=== PATIENT | female | born 1960 | race Caucasian/White ===

== ENCOUNTER → 2017-06-30 | Outpatient (CLI) | payer OTHER ==
[~2017-06-30] MED LIST: Zofran Odt4 MG PO
== END ==
LOC: PLD 07:34 → LAB SHORT 07:34
DX: L98.9 Disorder of the skin and subcutaneous tissue, unspecified (principal)
CPT/HCPCS: 88305

== ENCOUNTER 2018-07-20 08:12 | Emergency (ER) | payer OTHER ==
[~2018-07-20] VITALS: Ht 172.7 cm; Wt 61.7 kg
[2018-07-20] MEDS ORDERED: TRAM50 PO (08:47)
[2018-07-20] MEDS ORDERED: CYCL10 PO (08:47)
[2018-07-20 09:36] LABS: BASOPHILS ABSOLUTE AUTO 0.03 K/mm3 (0.00-0.23); BASOPHILS PERCENT AUTO 1 % (0-2); EOSINOPHILS ABSOLUTE AUTO 0.04 K/mm3 (0.00-0.68); EOSINOPHILS PERCENT AUTO 1 % (0-6); Hematocrit 26.8 % (33.0-51.0); Hemoglobin 8.8 g/dL (11.5-16.0); IMMATURE GRAN ABSOLUTE AUTO 0.02 K/mm3 (0.00-0.10); IMMATURE GRAN PERCENT AUTO 0 % (0-1); LYMPHOCYTES ABSOLUTE AUTO 1.22 K/mm3 (0.84-5.20); LYMPHOCYTES PERCENT AUTO 27 % (21-46); MONOCYTES ABSOLUTE AUTO 0.29 K/mm3 (0.16-1.47); MONOCYTES PERCENT AUTO 7 % (4-13); Mean Corpuscular HGB 31.4 pg (26.0-34.0); Mean Corpuscular HGB Conc 32.8 g/dL (31.5-36.5); Mean Corpuscular Volume 96 fL (80-100); Mean Platelet Volume 10.2 fL (9.1-12.4); NEUTROPHILS ABSOLUTE AUTO 2.89 K/mm3 (1.96-9.15); NEUTROPHILS PERCENT AUTO 64 % (41-73); Platelet Count 168 K/mm3 (150-400); RDW Coefficient Variation 14.6 % (11.7-14.2); RDW Standard Deviation 50.7 fL (35.1-46.3); White Blood Cell Count 4.49 K/mm3 (4.00-11.30)
[2018-07-20 09:59] LABS: Alanine Aminotransfer (ALT/SGP 77 U/L (12-78); Albumin, Blood 2.6 g/dL (3.4-5.0); Albumin/Globulin Ratio 0.3 (0.8-1.8); Alk Phos 121 U/L (50-136); Anion Gap 5 mmol/L (6-16); Aspartate Aminotrans (AST/SGOT 38 U/L (12-37); Bilirubin, Total 0.4 mg/dL (0.1-1.0); Blood Urea Nitrogen 14 mg/dL (8-24); Bun/Creatinine Ratio 15.4 (12.0-20.0); CO2, Blood 26 mmol/L (21-32); Calcium, Blood 8.4 mg/dL (8.5-10.1); Chloride, Blood 104 mmol/L (98-108); Creatinine, Blood 0.91 mg/dL (0.40-1.00); Globulin, Blood 7.5 g/dL (2.2-4.0); Glomerular Filtration Rate >60 (60-); Glucose, Blood 117 mg/dL (70-99); Potassium, Blood 3.7 mmol/L (3.5-5.5); Sodium, Blood 135 mmol/L (136-145); Total Protein, Blood 10.1 g/dL (6.4-8.2)
[2018-07-20] MEDS ORDERED: Norco 10-325 T1 EACH PO (13:45)
== END 2018-07-20 14:41 | disposition home or self-care (01) ==
LOC: ER 08:12
PROVIDERS: Emergency Medicine
DX: S32.019A Unspecified fracture of first lumbar vertebra, initial encounter for closed fracture (principal); S32.029A Unspecified fracture of second lumbar vertebra, initial encounter for closed fracture; S32.039A Unspecified fracture of third lumbar vertebra, initial encounter for closed fracture; S32.049A Unspecified fracture of fourth lumbar vertebra, initial encounter for closed fracture; S32.059A Unspecified fracture of fifth lumbar vertebra, initial encounter for closed fracture; D64.9 Anemia, unspecified; X58.XXXA Exposure to other specified factors, initial encounter
CPT/HCPCS: 36415; 72158; 73502; 80053; 85025; 99284-25; A9577

== ENCOUNTER → 2018-10-01 | Outpatient (CLI) | payer OTHER ==
[~2018-10-01] MED LIST changes: +CYCL10 PO; +Norco 10-325 T1 EACH PO; +TRAM50 PO
== END | disposition home or self-care (01) ==
LOC: LAB EV 12:26 → LAB SHORT 12:26
DX: M25.572 Pain in left ankle and joints of left foot (principal)
CPT/HCPCS: 84550

== ENCOUNTER → 2019-02-23 | Outpatient (CLI) | payer OTHER ==
[2019-02-23 12:01] LABS: Source, Urine Clean Catch
[2019-02-23 12:55] LABS: Bilirubin, Urine Neg (Neg); Blood, Urine 1+ (Neg); Glucose Qualitative, Urine Neg (Neg); Ketones, Urine Neg (Neg); Leukocyte Esterase, Urine Neg (Neg); Nitrite, Urine Neg (Neg); Protein, Urine Neg (Neg); Specific Gravity, Urine 1.005 (1.003-1.022); Urobilinogen, Urine NORM (Normal)
[2019-02-23 13:06] LABS: Appearance, Urine Clear (Clear); Color, Urine Yellow (P-Yellow)
[2019-02-23 13:07] LABS: Bacteria Rare /hpf; Red Blood Cells, Urine 0-2 /hpf (0-2); Squamous Epithelial Cells Not Seen /hpf (Few); White Blood Cells, Urine Not Seen /hpf (0-5)
== END | disposition home or self-care (01) ==
LOC: LAB 12:00 → LAB SHORT 12:00
PROVIDERS: Registered Nurse Oncology
DX: N39.0 Urinary tract infection, site not specified (principal)
CPT/HCPCS: 81001; 87086

== ENCOUNTER 2020-08-23 04:37 | Day surgery (SDC) | payer OTHER ==
[2020-08-20 09:03] LABS: BASOPHILS PERCENT AUTO 0 % (0-2); EOSINOPHILS PERCENT AUTO 5 % (0-6); Hematocrit 19.1 % (33.0-51.0); Mean Corpuscular HGB 34.5 pg (26.0-34.0); Mean Corpuscular HGB Conc 31.4 g/dL (31.5-36.5); Mean Corpuscular Volume 110 fL (80-100); Mean Platelet Volume 12.2 fL (9.1-12.4); Platelet Count 59 K/mm3 (150-400); RDW Coefficient Variation 14.9 % (11.7-14.2); RDW Standard Deviation 60.3 fL (35.1-46.3); Red Blood Cell Count 1.74 M/mm3 (3.80-5.20); White Blood Cell Count 2.09 K/mm3 (4.00-11.30)
[2020-08-20 09:05] LABS: IMMATURE GRAN ABSOLUTE AUTO 0.03 K/mm3 (0.00-0.10); IMMATURE GRAN PERCENT AUTO 1 % (0-1); LYMPHOCYTES ABSOLUTE AUTO 0.21 K/mm3 (0.84-5.20); LYMPHOCYTES PERCENT AUTO 10 % (21-46); MONOCYTES ABSOLUTE AUTO 0.12 K/mm3 (0.16-1.47); MONOCYTES PERCENT AUTO 6 % (4-13); NEUTROPHILS ABSOLUTE AUTO 1.63 K/mm3 (1.96-9.15); NEUTROPHILS PERCENT AUTO 78 % (41-73)
[2020-08-20 09:15] LABS: Alanine Aminotransfer (ALT/SGP 26 U/L (12-78); Albumin, Blood 2.5 g/dL (3.4-5.0); Albumin/Globulin Ratio 0.3 (0.8-1.8); Alk Phos 69 U/L (50-136); Anion Gap 6 mmol/L (6-16); Aspartate Aminotrans (AST/SGOT 10 U/L (12-37); Bilirubin, Total 0.3 mg/dL (0.1-1.0); Blood Urea Nitrogen 11 mg/dL (8-24); CO2, Blood 23 mmol/L (21-32); Calcium, Blood 7.8 mg/dL (8.5-10.1); Chloride, Blood 104 mmol/L (98-108); Creatinine, Blood 0.85 mg/dL (0.40-1.00); Globulin, Blood 7.6 g/dL (2.2-4.0); Glomerular Filtration Rate >60 (60-); Glucose, Blood 108 mg/dL (70-99); Potassium, Blood 3.7 mmol/L (3.5-5.5); Sodium, Blood 133 mmol/L (136-145); Total Protein, Blood 10.1 g/dL (6.4-8.2)
[2020-08-21 08:26] LABS: Performing Lab BLOODWORKS; Test Name ABID
[2020-08-22 11:41] LABS: Result SEE REPORT
[~2020-08-23 04:37] MED LIST changes: +DEXAMETHASONE IV; +FENTANYL; +OXYC10ER PO; +[UNRECOGNIZED DRUG - OTHER] IV
== END 2020-08-23 11:25 | disposition home or self-care (01) ==
LOC: ATC 04:37 → LAB SO 09-18 09:10 → EDSTATUS 09-18 09:10 → ATC 09-18 09:10
PROVIDERS: Internal Medicine Hematology & Oncology
DX: C90.00 Multiple myeloma not having achieved remission (principal); D63.0 Anemia in neoplastic disease
CPT/HCPCS: 36415; 36430; 80053; 85025; 86850; 86870; 86900; 86901; 86902; 86906; 86922; 86971; J7050; P9016

== ENCOUNTER → 2020-09-01 | Outpatient (CLI) | payer OTHER ==
[~2020-09-01] MED LIST changes: +ACET325 PO; +ACYC800 PO; +CEFU500T30 PO; +FENTANYL1 EA10 TOP; +FLUC200 PO; +FURO40 PO; +GUAI200 PO; +LEVFLO500 PO; +ONDA4 PO; +ONDA4ODT MM; +SENNA LAXATIVE8.6 MG PO; +TOBRAMYCIN5 ML RIGHTEYE
[2020-09-01 11:21] LABS: Hematocrit 25.7 % (33.0-51.0); Hemoglobin 8.3 g/dL (11.5-16.0); Mean Corpuscular HGB 33.2 pg (26.0-34.0); Mean Corpuscular HGB Conc 32.3 g/dL (31.5-36.5); Mean Corpuscular Volume 103 fL (80-100); RDW Coefficient Variation 16.3 % (11.7-14.2)
[2020-09-01 11:37] LABS: BAND PERCENT MAN 7 % (0-8); BASOPHILS PERCENT MAN 3 % (0-2); EOSINOPHILS PERCENT MAN 0 % (0-6); LYMPHOCYTES PERCENT MAN 36 % (21-46); METAMYELOCYTE PERCENT MAN 1 % (0-0); MONOCYTES PERCENT MAN 10 % (4-13); MYELOCYTE PERCENT MAN 2 % (0-0); SEG NEUTROPHILS PERCENT MAN 41 % (41-73); TOTAL CELLS COUNTED 100
[2020-09-01 11:39] LABS: Mean Platelet Volume 10.7 fL (9.1-12.4); Platelet Count 73 K/mm3 (150-400)
== END | disposition home or self-care (01) ==
LOC: LAB SHORT 11:12 → LAB 11:12
PROVIDERS: General Practice
DX: H00.019 Hordeolum externum unspecified eye, unspecified eyelid (principal)
CPT/HCPCS: 85025

== ENCOUNTER 2020-09-09 00:27 | Day surgery (SDC) | payer OTHER ==
[~2020-09-09 00:27] MED LIST changes: -ACET325 PO; -ACYC800 PO; -CEFU500T30 PO; -FENTANYL1 EA10 TOP; -FLUC200 PO; -FURO40 PO; -GUAI200 PO; -LEVFLO500 PO; -ONDA4 PO; -ONDA4ODT MM; -SENNA LAXATIVE8.6 MG PO; -TOBRAMYCIN5 ML RIGHTEYE
[2020-09-09] MEDS ORDERED: TOBRAMYCIN5 ML RIGHTEYE (10:52)
[2020-09-09] MEDS ORDERED: CEFU500T30 PO (10:53)
[2020-09-09] MEDS ORDERED: FENTANYL1 EA10 TOP (10:53)
== END 2020-09-09 10:20 | disposition home or self-care (01) ==
LOC: ATC 00:27
DX: D64.9 Anemia, unspecified (principal); C90.00 Multiple myeloma not having achieved remission; Z94.84 Stem cells transplant status; E78.5 Hyperlipidemia, unspecified; Z87.311 Personal history of (healed) other pathological fracture
CPT/HCPCS: 36569; C1751

== ENCOUNTER 2020-09-18 08:16 | Emergency (ER) | payer OTHER ==
[~2020-09-18] VITALS: Ht 167.6 cm; Wt 62.1 kg
[~2020-09-18 08:16] MED LIST changes: +CEFU500T30 PO; +FENTANYL1 EA10 TOP; +TOBRAMYCIN5 ML RIGHTEYE
[2020-09-18] MEDS ORDERED: ACET325 PO (09:00)
[2020-09-18] MEDS ORDERED: ACYC800 PO (09:01)
[2020-09-18] MEDS ORDERED: FLUC200 PO (09:01)
[2020-09-18] MEDS ORDERED: FURO40 PO (09:02)
[2020-09-18] MEDS ORDERED: GUAI200 PO (09:02)
[2020-09-18] MEDS ORDERED: LEVFLO500 PO (09:02)
[2020-09-18] MEDS ORDERED: ONDA4 PO (09:03)
[2020-09-18] MEDS ORDERED: SENNA LAXATIVE8.6 MG PO (09:03)
[2020-09-18 10:00] LABS: Hematocrit 28.1 % (33.0-51.0); Hemoglobin 9.3 g/dL (11.5-16.0); Mean Corpuscular HGB 31.8 pg (26.0-34.0); Mean Corpuscular HGB Conc 33.1 g/dL (31.5-36.5); Mean Corpuscular Volume 96 fL (80-100); Mean Platelet Volume 12.2 fL (9.1-12.4); RDW Coefficient Variation 16.2 % (11.7-14.2); Red Blood Cell Count 2.92 M/mm3 (3.80-5.20)
[2020-09-18 10:25] LABS: Platelet Count 20 K/mm3 (150-400)
[2020-09-18 10:28] LABS: Anion Gap 4 mmol/L (6-16); Blood Urea Nitrogen 17 mg/dL (8-24); Bun/Creatinine Ratio 32.6 (12.0-20.0); CO2, Blood 24 mmol/L (21-32); Chloride, Blood 107 mmol/L (98-108); Creatinine, Blood 0.52 mg/dL (0.40-1.00); Glomerular Filtration Rate >60 (60-); Glucose, Blood 86 mg/dL (70-99); Potassium, Blood 3.5 mmol/L (3.5-5.5); Sodium, Blood 135 mmol/L (136-145)
[2020-09-18 10:52] LABS: BASOPHILS PERCENT MAN 0 % (0-2); EOSINOPHILS ABSOLUTE MAN 0.01 K/mm3 (0.00-0.68); EOSINOPHILS PERCENT MAN 1 % (0-6); LYMPHOCYTES % ATYPICAL MANUAL 1 % (0-0); LYMPHOCYTES ABSOLUTE MAN 0.07 K/mm3 (0.84-5.20); LYMPHOCYTES PERCENT MAN 6 % (21-46); MONOCYTES PERCENT MAN 0 % (4-13); NEUTROPHILS ABSOLUTE MAN 0.92 K/mm3 (1.96-9.15); SEG NEUTROPHILS PERCENT MAN 92 % (41-73); TOTAL CELLS COUNTED 100
[2020-09-18] MEDS ORDERED: ONDA4ODT MM (13:22)
== END 2020-09-18 13:40 | disposition home or self-care (01) ==
LOC: ER 08:16
PROVIDERS: Family Medicine
DX: R11.10 Vomiting, unspecified (principal); T45.1X5A Adverse effect of antineoplastic and immunosuppressive drugs, initial encounter; C90.00 Multiple myeloma not having achieved remission
CPT/HCPCS: 80048; 85025; 96374; 99283-25; J2405; J7030

== ENCOUNTER 2020-09-19 01:19 | Day surgery (SDC) | payer OTHER ==
[~2020-09-19 01:19] MED LIST changes: +ACET325 PO; +ACYC800 PO; +FLUC200 PO; +FURO40 PO; +GUAI200 PO; +LEVFLO500 PO; +ONDA4 PO; +ONDA4ODT MM; +SENNA LAXATIVE8.6 MG PO
== END 2020-09-19 15:27 | disposition home or self-care (01) ==
LOC: LAB 01:19 → ATC 01:19
DX: C90.00 Multiple myeloma not having achieved remission (principal); D69.59 Other secondary thrombocytopenia
CPT/HCPCS: 36430; 86900; 86901; J7050; P9035

== ENCOUNTER 2020-09-24 00:38 | Day surgery (SDC) | payer OTHER ==
[2020-09-23 09:18] LABS: Hematocrit 26.4 % (33.0-51.0); Hemoglobin 8.7 g/dL (11.5-16.0); Mean Corpuscular HGB 31.2 pg (26.0-34.0); Mean Corpuscular Volume 95 fL (80-100); RDW Coefficient Variation 14.5 % (11.7-14.2); RDW Standard Deviation 50.7 fL (35.1-46.3); Red Blood Cell Count 2.79 M/mm3 (3.80-5.20)
[2020-09-23 09:30] LABS: Alanine Aminotransfer (ALT/SGP 102 U/L (12-78); Albumin, Blood 2.2 g/dL (3.4-5.0); Albumin/Globulin Ratio 0.3 (0.8-1.8); Alk Phos 62 U/L (50-136); Anion Gap 2 mmol/L (6-16); Aspartate Aminotrans (AST/SGOT 14 U/L (12-37); Bilirubin, Total 0.4 mg/dL (0.1-1.0); Blood Urea Nitrogen 10 mg/dL (8-24); Bun/Creatinine Ratio 14.7 (12.0-20.0); CO2, Blood 29 mmol/L (21-32); Calcium, Blood 7.8 mg/dL (8.5-10.1); Chloride, Blood 101 mmol/L (98-108); Creatinine, Blood 0.68 mg/dL (0.40-1.00); Globulin, Blood 7.3 g/dL (2.2-4.0); Glomerular Filtration Rate >60 (60-); Glucose, Blood 119 mg/dL (70-99); Potassium, Blood 3.5 mmol/L (3.5-5.5); Sodium, Blood 132 mmol/L (136-145); Total Protein, Blood 9.5 g/dL (6.4-8.2)
[2020-09-23 09:33] LABS: White Blood Cell Count 0.06 K/mm3 (4.00-11.30)
[2020-09-23 09:34] LABS: Platelet Count 11 K/mm3 (150-400)
[2020-09-23 09:46] LABS: BASOPHILS PERCENT MAN 0 % (0-2); EOSINOPHILS PERCENT MAN 0 % (0-6); LYMPHOCYTES ABSOLUTE MAN 0.05 K/mm3 (0.84-5.20)
[2020-09-23 09:54] LABS: LYMPHOCYTES PERCENT MAN 94 % (21-46); MONOCYTES PERCENT MAN 0 % (4-13); SEG NEUTROPHILS PERCENT MAN 6 % (41-73); TOTAL CELLS COUNTED 16
== END 2020-09-24 09:55 | disposition home or self-care (01) ==
LOC: ATC 00:38 → EDSTATUS 08:00 → ATC 09:55
PROVIDERS: Internal Medicine Hematology & Oncology
DX: C90.00 Multiple myeloma not having achieved remission (principal); C79.51 Secondary malignant neoplasm of bone; E78.5 Hyperlipidemia, unspecified; D70.1 Agranulocytosis secondary to cancer chemotherapy; D63.0 Anemia in neoplastic disease; Z92.21 Personal history of antineoplastic chemotherapy
CPT/HCPCS: 36415; 80053; 85025; 86900; 86901; J7050; P9053

== ENCOUNTER 2020-09-26 00:51 | Day surgery (SDC) | payer OTHER | END 2020-09-26 14:15 | disposition home or self-care (01) | LOC: ATC 00:51 | DX: C90.00 Multiple myeloma not having achieved remission (principal); C79.51 Secondary malignant neoplasm of bone; D63.0 Anemia in neoplastic disease; G89.3 Neoplasm related pain (acute) (chronic) | CPT/HCPCS: 99211 ==

== ENCOUNTER 2020-09-27 08:55 | Day surgery (SDC) | payer OTHER ==
[2020-09-26 09:37] LABS: Hematocrit 24.7 % (33.0-51.0); Hemoglobin 8.1 g/dL (11.5-16.0); Mean Corpuscular HGB 31.6 pg (26.0-34.0); Mean Corpuscular HGB Conc 32.8 g/dL (31.5-36.5); Mean Corpuscular Volume 97 fL (80-100); RDW Coefficient Variation 14.4 % (11.7-14.2); Red Blood Cell Count 2.56 M/mm3 (3.80-5.20)
[2020-09-26 09:46] LABS: White Blood Cell Count 0.03 K/mm3 (4.00-11.30)
[2020-09-26 09:47] LABS: Platelet Count 18 K/mm3 (150-400)
[2020-09-26 09:52] LABS: Alanine Aminotransfer (ALT/SGP 61 U/L (12-78); Albumin, Blood 2.4 g/dL (3.4-5.0); Albumin/Globulin Ratio 0.3 (0.8-1.8); Alk Phos 76 U/L (50-136); Anion Gap 4 mmol/L (6-16); Aspartate Aminotrans (AST/SGOT 12 U/L (12-37); Bilirubin, Total 0.4 mg/dL (0.1-1.0); Blood Urea Nitrogen 11 mg/dL (8-24); Bun/Creatinine Ratio 18.4 (12.0-20.0); CO2, Blood 26 mmol/L (21-32); Calcium, Blood 7.9 mg/dL (8.5-10.1); Chloride, Blood 104 mmol/L (98-108); Globulin, Blood 7.1 g/dL (2.2-4.0); Glomerular Filtration Rate >60 (60-); Glucose, Blood 100 mg/dL (70-99); Potassium, Blood 3.7 mmol/L (3.5-5.5); Sodium, Blood 134 mmol/L (136-145); Total Protein, Blood 9.5 g/dL (6.4-8.2)
[2020-09-26 10:22] LABS: BASOPHILS PERCENT MAN 0 % (0-2); EOSINOPHILS PERCENT MAN 0 % (0-6); LYMPHOCYTES % ATYPICAL MANUAL 14 % (0-0); LYMPHOCYTES ABSOLUTE MAN 0.02 K/mm3 (0.84-5.20); LYMPHOCYTES PERCENT MAN 71 % (21-46); MONOCYTES PERCENT MAN 14 % (4-13)
[2020-09-26 10:25] LABS: SEG NEUTROPHILS PERCENT MAN 0 % (41-73)
[2020-09-26 10:27] LABS: TOTAL CELLS COUNTED 14
== END 2020-09-27 22:42 | disposition home or self-care (01) ==
LOC: ATC 08:55 → EDSTATUS 08:58 → ATC 22:42
PROVIDERS: Internal Medicine Hematology & Oncology
DX: C90.00 Multiple myeloma not having achieved remission (principal); D69.59 Other secondary thrombocytopenia; C79.51 Secondary malignant neoplasm of bone; D63.0 Anemia in neoplastic disease; G89.3 Neoplasm related pain (acute) (chronic)
CPT/HCPCS: 36415; 80053; 85025; 86900; 86901; J7050; P9037

== ENCOUNTER 2020-10-03 00:57 | Day surgery (SDC) | payer OTHER ==
[2020-10-03 09:30] LABS: Hematocrit 20.5 % (33.0-51.0); Hemoglobin 6.8 g/dL (11.5-16.0); Mean Corpuscular HGB 31.1 pg (26.0-34.0); Mean Corpuscular HGB Conc 33.2 g/dL (31.5-36.5); Mean Corpuscular Volume 94 fL (80-100); RDW Coefficient Variation 14.1 % (11.7-14.2); RDW Standard Deviation 47.7 fL (35.1-46.3); Red Blood Cell Count 2.19 M/mm3 (3.80-5.20)
[2020-10-03 09:43] LABS: Alanine Aminotransfer (ALT/SGP 38 U/L (12-78); Albumin, Blood 2.4 g/dL (3.4-5.0); Albumin/Globulin Ratio 0.3 (0.8-1.8); Alk Phos 94 U/L (50-136); Anion Gap 6 mmol/L (6-16); Aspartate Aminotrans (AST/SGOT 14 U/L (12-37); Bilirubin, Total 0.4 mg/dL (0.1-1.0); Blood Urea Nitrogen 13 mg/dL (8-24); Bun/Creatinine Ratio 18.9 (12.0-20.0); CO2, Blood 24 mmol/L (21-32); Calcium, Blood 8.5 mg/dL (8.5-10.1); Chloride, Blood 105 mmol/L (98-108); Creatinine, Blood 0.69 mg/dL (0.40-1.00); Globulin, Blood 7.2 g/dL (2.2-4.0); Glomerular Filtration Rate >60 (60-); Glucose, Blood 99 mg/dL (70-99); Potassium, Blood 4.2 mmol/L (3.5-5.5); Sodium, Blood 135 mmol/L (136-145); Total Protein, Blood 9.6 g/dL (6.4-8.2)
[2020-10-03 10:04] LABS: BASOPHILS PERCENT AUTO 0 % (0-2); EOSINOPHILS PERCENT AUTO 0 % (0-6); IMMATURE GRAN ABSOLUTE AUTO 0.04 K/mm3 (0.00-0.10); IMMATURE GRAN PERCENT AUTO 15 % (0-1); LYMPHOCYTES ABSOLUTE AUTO 0.05 K/mm3 (0.84-5.20); LYMPHOCYTES PERCENT AUTO 19 % (21-46); MONOCYTES ABSOLUTE AUTO 0.03 K/mm3 (0.16-1.47); MONOCYTES PERCENT AUTO 12 % (4-13); NEUTROPHILS ABSOLUTE AUTO 0.14 K/mm3 (1.96-9.15); NEUTROPHILS PERCENT AUTO 54 % (41-73)
[2020-10-03 10:05] LABS: White Blood Cell Count 0.26 K/mm3 (4.00-11.30)
[2020-10-03 10:06] LABS: Platelet Count 6 K/mm3 (150-400)
[2020-10-03 10:35] LABS: BAND PERCENT MAN 12 % (0-8); BASOPHILS PERCENT MAN 0 % (0-2); EOSINOPHILS PERCENT MAN 0 % (0-6); LYMPHOCYTES ABSOLUTE MAN 0.09 K/mm3 (0.84-5.20); LYMPHOCYTES PERCENT MAN 36 % (21-46); MONOCYTES ABSOLUTE MAN 0.01 K/mm3 (0.16-1.47); MONOCYTES PERCENT MAN 4 % (4-13); NEUTROPHILS ABSOLUTE MAN 0.15 K/mm3 (1.96-9.15); SEG NEUTROPHILS PERCENT MAN 48 % (41-73); TOTAL CELLS COUNTED 25
== END 2020-10-03 18:13 | disposition home or self-care (01) ==
LOC: LAB 00:57 → ATC 00:57
PROVIDERS: Internal Medicine Hematology & Oncology
DX: C90.00 Multiple myeloma not having achieved remission (principal); D63.0 Anemia in neoplastic disease; D69.59 Other secondary thrombocytopenia
CPT/HCPCS: 36415; 36430; 36591; 80053; 85025; 86850; 86900; 86901; 86923; J7050; P9016; P9035

== ENCOUNTER 2020-10-10 09:08 | Day surgery (SDC) | payer OTHER ==
[2020-10-10 09:55] LABS: Hematocrit 24.3 % (33.0-51.0); Hemoglobin 8.2 g/dL (11.5-16.0); Mean Corpuscular HGB 30.4 pg (26.0-34.0); Mean Corpuscular HGB Conc 33.7 g/dL (31.5-36.5); Mean Corpuscular Volume 90 fL (80-100); Mean Platelet Volume 12.7 fL (9.1-12.4); NRBC ABSOLUTE 0.02 K/mm3 (0.00-0.02); NRBC Auto 0.8 /100 WBC (0.0-0.2); RDW Coefficient Variation 13.9 % (11.7-14.2); RDW Standard Deviation 45.7 fL (35.1-46.3); White Blood Cell Count 2.47 K/mm3 (4.00-11.30)
[2020-10-10 10:01] LABS: Alanine Aminotransfer (ALT/SGP 30 U/L (12-78); Albumin, Blood 2.6 g/dL (3.4-5.0); Albumin/Globulin Ratio 0.3 (0.8-1.8); Alk Phos 80 U/L (50-136); Anion Gap 5 mmol/L (6-16); Aspartate Aminotrans (AST/SGOT 16 U/L (12-37); Bilirubin, Total 0.3 mg/dL (0.1-1.0); Blood Urea Nitrogen 10 mg/dL (8-24); Bun/Creatinine Ratio 13.6 (12.0-20.0); CO2, Blood 24 mmol/L (21-32); Calcium, Blood 8.5 mg/dL (8.5-10.1); Chloride, Blood 107 mmol/L (98-108); Creatinine, Blood 0.73 mg/dL (0.40-1.00); Globulin, Blood 7.6 g/dL (2.2-4.0); Glomerular Filtration Rate >60 (60-); Glucose, Blood 104 mg/dL (70-99); Potassium, Blood 3.9 mmol/L (3.5-5.5); Sodium, Blood 136 mmol/L (136-145); Total Protein, Blood 10.2 g/dL (6.4-8.2)
[2020-10-10 10:08] LABS: Platelet Count 27 K/mm3 (150-400)
[2020-10-10 10:24] LABS: BAND PERCENT MAN 4 % (0-8); BASOPHILS ABSOLUTE MAN 0.02 K/mm3 (0.00-0.23); BASOPHILS PERCENT MAN 1 % (0-2); EOSINOPHILS PERCENT MAN 0 % (0-6); LYMPHOCYTES ABSOLUTE MAN 0.32 K/mm3 (0.84-5.20); LYMPHOCYTES PERCENT MAN 13 % (21-46); MONOCYTES ABSOLUTE MAN 0.32 K/mm3 (0.16-1.47); MONOCYTES PERCENT MAN 13 % (4-13); MYELOCYTE ABSOLUTE MAN 0.14 K/mm3 (0.00-0.00); MYELOCYTE PERCENT MAN 6 % (0-0); NEUTROPHILS ABSOLUTE MAN 1.65 K/mm3 (1.96-9.15); SEG NEUTROPHILS PERCENT MAN 63 % (41-73); TOTAL CELLS COUNTED 100
== END 2020-10-10 09:45 | disposition home or self-care (01) ==
LOC: ATC 09:08 → LAB 09:08 → ATC 09:45
PROVIDERS: Internal Medicine Hematology & Oncology
DX: D69.59 Other secondary thrombocytopenia (principal); D63.0 Anemia in neoplastic disease
CPT/HCPCS: 36592; 80053; 85025

== ENCOUNTER 2020-10-30 02:15 | Day surgery (SDC) | payer OTHER ==
[2020-10-28 09:45] LABS: Hematocrit 19.1 % (33.0-51.0); Mean Corpuscular HGB 30.6 pg (26.0-34.0); Mean Corpuscular HGB Conc 31.4 g/dL (31.5-36.5); Mean Corpuscular Volume 97 fL (80-100); NRBC ABSOLUTE 0.07 K/mm3 (0.00-0.02); NRBC Auto 1.8 /100 WBC (0.0-0.2); RDW Coefficient Variation 16.8 % (11.7-14.2); RDW Standard Deviation 53.4 fL (35.1-46.3); Red Blood Cell Count 1.96 M/mm3 (3.80-5.20); White Blood Cell Count 3.94 K/mm3 (4.00-11.30)
[2020-10-28 10:04] LABS: Platelet Count 33 K/mm3 (150-400)
[2020-10-28 10:12] LABS: Albumin, Blood 2.4 g/dL (3.4-5.0); Albumin/Globulin Ratio 0.2 (0.8-1.8); Bilirubin, Total 0.4 mg/dL (0.1-1.0); Bun/Creatinine Ratio 16.6 (12.0-20.0); Calcium, Blood 8.2 mg/dL (8.5-10.1); Creatinine, Blood 0.97 mg/dL (0.40-1.00); Globulin, Blood 9.8 g/dL (2.2-4.0); Potassium, Blood 3.8 mmol/L (3.5-5.5); Total Protein, Blood 12.2 g/dL (6.4-8.2)
[2020-10-28 12:10] LABS: BAND PERCENT MAN 8 % (0-8); BASOPHILS PERCENT MAN 0 % (0-2); EOSINOPHILS ABSOLUTE MAN 0.03 K/mm3 (0.00-0.68); EOSINOPHILS PERCENT MAN 1 % (0-6); LYMPHOCYTES ABSOLUTE MAN 1.06 K/mm3 (0.84-5.20); LYMPHOCYTES PERCENT MAN 27 % (21-46); METAMYELOCYTE ABSOLUTE MAN 0.03 K/mm3 (0.00-0.00); METAMYELOCYTE PERCENT MAN 1 % (0-0); MONOCYTES ABSOLUTE MAN 0.39 K/mm3 (0.16-1.47); MONOCYTES PERCENT MAN 10 % (4-13); MYELOCYTE ABSOLUTE MAN 0.19 K/mm3 (0.00-0.00); MYELOCYTE PERCENT MAN 5 % (0-0); SEG NEUTROPHILS PERCENT MAN 48 % (41-73); TOTAL CELLS COUNTED 100
== END 2020-10-30 11:24 | disposition home or self-care (01) ==
LOC: ATC 02:15
PROVIDERS: Internal Medicine Hematology & Oncology
DX: C90.00 Multiple myeloma not having achieved remission (principal); D63.0 Anemia in neoplastic disease; E78.5 Hyperlipidemia, unspecified; C79.51 Secondary malignant neoplasm of bone
CPT/HCPCS: 36415; 36430; 80053; 85025; 86850; 86900; 86901; 86920; J7050; P9016

== ENCOUNTER 2020-11-05 00:57 | Day surgery (SDC) | payer OTHER ==
[2020-11-04 11:43] LABS: BASOPHILS ABSOLUTE AUTO 0.04 K/mm3 (0.00-0.23); BASOPHILS PERCENT AUTO 1 % (0-2); Hematocrit 21.5 % (33.0-51.0); Hemoglobin 6.8 g/dL (11.5-16.0); Mean Corpuscular HGB 29.4 pg (26.0-34.0); Mean Corpuscular HGB Conc 31.6 g/dL (31.5-36.5); Mean Corpuscular Volume 93 fL (80-100); Mean Platelet Volume 9.2 fL (9.1-12.4); NRBC ABSOLUTE 0.11 K/mm3 (0.00-0.02); NRBC Auto 1.9 /100 WBC (0.0-0.2); RDW Coefficient Variation 18.4 % (11.7-14.2); RDW Standard Deviation 59.4 fL (35.1-46.3); Red Blood Cell Count 2.31 M/mm3 (3.80-5.20); White Blood Cell Count 5.66 K/mm3 (4.00-11.30)
[2020-11-04 11:52] LABS: EOSINOPHILS ABSOLUTE AUTO 0.03 K/mm3 (0.00-0.68); EOSINOPHILS PERCENT AUTO 1 % (0-6); IMMATURE GRAN ABSOLUTE AUTO 0.76 K/mm3 (0.00-0.10); IMMATURE GRAN PERCENT AUTO 13 % (0-1); LYMPHOCYTES ABSOLUTE AUTO 1.76 K/mm3 (0.84-5.20); LYMPHOCYTES PERCENT AUTO 31 % (21-46); MONOCYTES ABSOLUTE AUTO 0.71 K/mm3 (0.16-1.47); MONOCYTES PERCENT AUTO 13 % (4-13); NEUTROPHILS ABSOLUTE AUTO 2.36 K/mm3 (1.96-9.15); NEUTROPHILS PERCENT AUTO 42 % (41-73); Platelet Count 8 K/mm3 (150-400)
[2020-11-04 11:58] LABS: Albumin, Blood 2.2 g/dL (3.4-5.0); Albumin/Globulin Ratio 0.2 (0.8-1.8); Bilirubin, Total 0.5 mg/dL (0.1-1.0); Bun/Creatinine Ratio 15.2 (12.0-20.0); Calcium, Blood 8.1 mg/dL (8.5-10.1); Creatinine, Blood 0.98 mg/dL (0.40-1.00); Globulin, Blood 12.1 g/dL (2.2-4.0); Potassium, Blood 3.9 mmol/L (3.5-5.5); Total Protein, Blood 14.3 g/dL (6.4-8.2)
--- NOTE | 2020-11-05 08:34 | NUR ---
THIS RN ATTEMPTED 2 TIMES AND MICKIE DERECK ATTEMPTED 2X
== END 2020-11-05 13:09 | disposition home or self-care (01) ==
LOC: ATC 00:57 → EDSTATUS 08:00 → ATC 08:00
PROVIDERS: Internal Medicine Hematology & Oncology
DX: C90.00 Multiple myeloma not having achieved remission (principal); D69.59 Other secondary thrombocytopenia; D63.0 Anemia in neoplastic disease
CPT/HCPCS: 36415; 36430; 80053; 85025; 86850; 86900; 86901; 86922; J7050; P9016; P9035

== ENCOUNTER 2020-11-12 08:05 | Day surgery (SDC) | payer OTHER ==
[2020-11-11 13:19] LABS: Hematocrit 24.9 % (33.0-51.0); Hemoglobin 7.8 g/dL (11.5-16.0); Mean Corpuscular HGB Conc 31.3 g/dL (31.5-36.5); Mean Corpuscular Volume 93 fL (80-100); NRBC ABSOLUTE 0.05 K/mm3 (0.00-0.02); NRBC Auto 1.1 /100 WBC (0.0-0.2); RDW Coefficient Variation 17.4 % (11.7-14.2); RDW Standard Deviation 56.2 fL (35.1-46.3); Red Blood Cell Count 2.69 M/mm3 (3.80-5.20); White Blood Cell Count 4.43 K/mm3 (4.00-11.30)
[2020-11-11 13:34] LABS: Platelet Count 4 K/mm3 (150-400)
[2020-11-11 13:49] LABS: Albumin, Blood 1.9 g/dL (3.4-5.0); Bilirubin, Total 0.8 mg/dL (0.1-1.0); Bun/Creatinine Ratio 19.5 (12.0-20.0); Calcium, Blood 8.4 mg/dL (8.5-10.1); Creatinine, Blood 1.13 mg/dL (0.40-1.00)
[2020-11-11 14:14] LABS: Albumin/Globulin Ratio 0.1 (0.8-1.8); Globulin, Blood 13.4 g/dL (2.2-4.0); Total Protein, Blood 15.3 g/dL (6.4-8.2)
[2020-11-11 14:27] LABS: BAND PERCENT MAN 12 % (0-8); BASOPHILS PERCENT MAN 0 % (0-2); EOSINOPHILS ABSOLUTE MAN 0.04 K/mm3 (0.00-0.68); EOSINOPHILS PERCENT MAN 1 % (0-6); LYMPHOCYTES % ATYPICAL MANUAL 7 % (0-0); LYMPHOCYTES ABSOLUTE MAN 0.84 K/mm3 (0.84-5.20); LYMPHOCYTES PERCENT MAN 12 % (21-46); METAMYELOCYTE ABSOLUTE MAN 0.48 K/mm3 (0.00-0.00); METAMYELOCYTE PERCENT MAN 11 % (0-0); MONOCYTES ABSOLUTE MAN 0.04 K/mm3 (0.16-1.47); MONOCYTES PERCENT MAN 1 % (4-13); MYELOCYTE ABSOLUTE MAN 0.26 K/mm3 (0.00-0.00); MYELOCYTE PERCENT MAN 6 % (0-0); NEUTROPHILS ABSOLUTE MAN 2.74 K/mm3 (1.96-9.15); SEG NEUTROPHILS PERCENT MAN 50 % (41-73); TOTAL CELLS COUNTED 100
--- NOTE | 2020-11-12 10:04 | NUR ---
PT WITH FAINT INSPIRATORY CRACKLES TO LEFT BASE AT END OF PLATELET INFUSION, CRACKLES IMPROVE WITH DEEP COUGH.
== END 2020-11-12 10:04 | disposition home or self-care (01) ==
LOC: ATC 08:05 → LAB FUT 11-07 18:20 → EDSTATUS 11-07 18:20
PROVIDERS: Internal Medicine Hematology & Oncology
DX: C90.00 Multiple myeloma not having achieved remission (principal); D69.59 Other secondary thrombocytopenia; Z94.84 Stem cells transplant status
CPT/HCPCS: 36415; 36430; 80053; 85025; 86900; 86901; J7050; P9035

== ENCOUNTER 2020-11-13 21:07 | Emergency (ER) | payer OTHER ==
[~2020-11-13] VITALS: Ht 170.2 cm; Wt 59.0 kg
[2020-11-13 21:45] LABS: BASOPHILS ABSOLUTE AUTO 0.03 K/mm3 (0.00-0.23); BASOPHILS PERCENT AUTO 1 % (0-2); Mean Corpuscular HGB 29.5 pg (26.0-34.0); Mean Corpuscular HGB Conc 31.8 g/dL (31.5-36.5); Mean Corpuscular Volume 93 fL (80-100); Mean Platelet Volume 8.8 fL (9.1-12.4); NRBC ABSOLUTE 0.06 K/mm3 (0.00-0.02); NRBC Auto 1.2 /100 WBC (0.0-0.2); RDW Coefficient Variation 17.7 % (11.7-14.2); RDW Standard Deviation 57.1 fL (35.1-46.3); Red Blood Cell Count 1.83 M/mm3 (3.80-5.20); White Blood Cell Count 5.08 K/mm3 (4.00-11.30)
[2020-11-13 21:49] LABS: EOSINOPHILS ABSOLUTE AUTO 0.02 K/mm3 (0.00-0.68); EOSINOPHILS PERCENT AUTO 0 % (0-6); Hemoglobin 5.4 g/dL (11.5-16.0); IMMATURE GRAN ABSOLUTE AUTO 0.88 K/mm3 (0.00-0.10); IMMATURE GRAN PERCENT AUTO 17 % (0-1); LYMPHOCYTES ABSOLUTE AUTO 1.75 K/mm3 (0.84-5.20); LYMPHOCYTES PERCENT AUTO 34 % (21-46); MONOCYTES PERCENT AUTO 16 % (4-13); NEUTROPHILS PERCENT AUTO 32 % (41-73)
[2020-11-13 21:50] LABS: Platelet Count 20 K/mm3 (150-400)
[2020-11-13 22:13] LABS: BAND PERCENT MAN 6 % (0-8); BASOPHILS ABSOLUTE MAN 0.05 K/mm3 (0.00-0.23); BASOPHILS PERCENT MAN 1 % (0-2); BLASTS PERCENT MAN 5 % (0-0); EOSINOPHILS ABSOLUTE MAN 0.05 K/mm3 (0.00-0.68); EOSINOPHILS PERCENT MAN 1 % (0-6); LYMPHOCYTES ABSOLUTE MAN 1.57 K/mm3 (0.84-5.20); LYMPHOCYTES PERCENT MAN 31 % (21-46); METAMYELOCYTE ABSOLUTE MAN 0.15 K/mm3 (0.00-0.00); METAMYELOCYTE PERCENT MAN 3 % (0-0); MONOCYTES ABSOLUTE MAN 0.96 K/mm3 (0.16-1.47); MONOCYTES PERCENT MAN 19 % (4-13); NEUTROPHILS ABSOLUTE MAN 1.62 K/mm3 (1.96-9.15); PROMYELOCYTE PERCENT MAN 8 % (0-0); SEG NEUTROPHILS PERCENT MAN 26 % (41-73); TOTAL CELLS COUNTED 100
[2020-11-13 22:16] LABS: Albumin, Blood 1.8 g/dL (3.4-5.0); Albumin/Globulin Ratio 0.1 (0.8-1.8); Bilirubin, Total 0.9 mg/dL (0.1-1.0); Bun/Creatinine Ratio 18.9 (12.0-20.0); Calcium, Blood 8.5 mg/dL (8.5-10.1); Creatinine, Blood 1.11 mg/dL (0.40-1.00); Globulin, Blood 12.9 g/dL (2.2-4.0); Potassium, Blood 4.1 mmol/L (3.5-5.5); Total Protein, Blood 14.7 g/dL (6.4-8.2)
== END 2020-11-14 00:04 | disposition home or self-care (01) ==
LOC: ER 21:07
PROVIDERS: Emergency Medicine
DX: E86.0 Dehydration (principal); C90.00 Multiple myeloma not having achieved remission; Z79.899 Other long term (current) drug therapy
CPT/HCPCS: 80053; 85025; 86850; 86900; 86901; 99284; A9270; J2550; J7030